=== PATIENT | male | born 1985 | race Caucasian/White ===

== ENCOUNTER 2024-11-17 04:03 | Emergency (ER) | payer BC, OTHER ==
[2024-11-17] MEDS ORDERED: Sodium Chloride 0.9% 10 ML Syringe FLUSH PRN (04:17)
[2024-11-17 04:46] LABS: BASOPHILS ABSOLUTE AUTO 0.05 10^3/uL (0.00-0.10); BASOPHILS PERCENT AUTO 0.5 % (0.0-1.0); EOSINOPHILS ABSOLUTE AUTO 0.61 10^3/uL (0.10-0.30); EOSINOPHILS PERCENT AUTO 6.5 % (1.0-3.0); HEMATOCRIT 47.2 % (40.0-52.0); HEMOGLOBIN 15.8 g/dL (13.0-17.0); IMMATURE GRAN ABSOLUTE AUTO 0.03 10^3/uL (0.00-0.04); IMMATURE GRAN PERCENT AUTO 0.3 % (0.0-0.4); LYMPHOCYTES ABSOLUTE AUTO 2.71 10^3/uL (1.00-4.00); LYMPHOCYTES PERCENT AUTO 28.8 % (20.0-40.0); MEAN CORPUSCULAR HEMOGLOBIN 28.4 pg (27.0-31.0); MEAN CORPUSCULAR HGB CONC 33.5 g/dL (32.0-36.0); MEAN CORPUSCULAR VOLUME 84.9 fL (82.0-92.0); MONOCYTES ABSOLUTE AUTO 0.91 10^3/uL (0.10-0.80); MONOCYTES PERCENT AUTO 9.7 % (2.0-8.0); NEUTROPHILS ABSOLUTE AUTO 5.09 10^3/uL (2.50-7.00); NEUTROPHILS PERCENT AUTO 54.2 % (50.0-70.0); PLATELET COUNT,PLT 297 10^3/uL (150-400); RED BLOOD CELL COUNT 5.56 10^6/uL (4.50-6.00); RED CELL DISTRIBUTION WIDTH 13.3 % (11.5-14.5)
[2024-11-17 05:03] LABS: ALANINE AMINOTRANSFERASE,ALT 66 U/L (14-63); ALBUMIN 3.96 g/dL (3.40-5.00); ALKALINE PHOSPHATASE 54 U/L (46-116); ANION GAP 13.2 mmol/L (5-15); ASPARTATE AMNIOTRANSFERASE,AST 26 U/L (15-37); BILIRUBIN TOTAL 0.4 mg/dL (0.2-1.0); BLOOD UREA NITROGEN,BUN 14 mg/dL (7-18); CALCIUM 8.9 mg/dL (8.7-10.3); CARBON DIOXIDE,CO2 28.2 mmol/L (21.0-32.0); CHLORIDE,CL 101 mmol/L (98-107); EST CRCL DRUG DOSING (CG) 111.29 mL/min; GLUCOSE RANDOM 106 mg/dL (70-140); POTASSIUM,K 3.4 mmol/L (3.5-5.1); PROTEIN TOTAL,TP 8.3 g/dL (6.4-8.2); SODIUM,NA 139 mmol/L (136-145)
[2024-11-17 05:06] LABS: C-REACTIVE PROTEIN < 0.50 mg/dL (0.00-0.50); ESTIMATED GFR 112 mL/min (>=60)
[2024-11-17 06:05] VITALS: BP 131/81; PULSE 63
== END 2024-11-17 05:27 | disposition home or self-care (01) ==
LOC: KA.ED 04:03
DX: M54.6 Pain in thoracic spine (principal); R07.89 Other chest pain
CPT/HCPCS: 80053; 84484; 85025; 85379; 86140; 99285